=== PATIENT | female | born 1950 | race Caucasian/White ===

== ENCOUNTER 2018-09-26 09:35 | Observation (INO) | payer OTHER ==
[~2018-09-26] VITALS: Ht 160 cm; Wt 85.0 kg
[2018-09-26] MEDS ORDERED: LISI1TAB6 PO (10:36)
[2018-09-26] MEDS ORDERED: METO-319 PO (10:37)
--- NOTE | 2018-09-26 12:05 | ERD ---
ER Documentation Chief Complaint Chief Complaint pressure like pain @ mid chest radiates to th back x 1 week ago HPI 68-year-old female presents the emergency department complaining of chest pain. Patient was evaluated at her doctor's office today when she went for an evaluation of chest discomfort that she is been having for approximately 1 week. Patient states that for the last week she is had a nonspecific, non-provoked pressure-like sensation in the center part of her chest. Occasionally radiates to her back in her arms. It does not make her short of breath. She reports no fevers, chills, sputum production. She reports no hemoptysis. She was evaluated by her doctor where an EKG was performed and was abnormal and she was referred to the emergency department for evaluation. Upon arrival, she appears comfortable and complaining of only mild discomfort. ROS All systems reviewed and are negative except as per history of present illness. Medications Home Meds Reported Medications Metoprolol Succinate* (Toprol XL*) 50 Mg Tab.er.24h, 50 MG PO DAILY, #30 TAB 09/26/18 Lisinopril/Hydrochlorothiazide (Lisinopril-Hctz 20-12.5 mg Tab) 1 Each Tablet, 1 EACH PO DAILY, TAB 09/26/18 Allergies Allergies: Coded Allergies: codeine (Unverified Adverse Reaction, Unknown, 09/26/18) PMhx/Soc History of Surgery: Yes (apendix, gallbladder, hysterectomy) Anesthesia Reaction: No Hx Neurological Disorder: No Hx Respiratory Disorders: No Hx Cardiac Disorders: Yes (htn, cholesterol) Hx Miscellaneous Medical Probl: No Hx Alcohol Use: No Hx Substance Use: No Hx Tobacco Use: No Smoking Status: Never smoker FmHx Family history of heart disease Physical Exam Vitals Vital Signs Date Temp Pulse Resp B/P (MAP) Pulse Ox O2 O2 Flow FiO2 Time Delivery Rate 09/26/18 65 18 141/75 99 Room Air 11:42 (97) 09/26/18 Nasal 2 10:38 Cannula 09/26/18 98.7 69 19 225/102 99 09:39 (143) Physical Exam GENERAL: The patient is well developed and appropriate for usual state of health in no apparent distress HEENT: Pupils equal, round, and reactive to light. EOMI. There is no scleral icterus. NECK: C-spine is soft and supple, there is no meningismus. There is no cervical lymphadenopathy. LUNGS: Clear to auscultation bilaterally. There are no rales, wheezes or rhonchi. HEART: Regular rate and rhythm, no murmurs, clicks, rubs or gallops. ABDOMEN: Soft, non-tender, non-distended. There are bowel sounds in all four quadrants. No rebound or guarding. EXTREMITIES: There is no peripheral cyanosis or edema. No focal swelling or erythema. NEURO: The patient moves all four extremities with 5/5 strength. Cranial nerves II - XII are intact. Normal gait. Alert and oriented SKIN: There is no apparent rash or petechiae. HEME/LYMPHATIC: There is no evidence of excessive bruising or lymphedema. PSYCHIATRIC: The patient does not appear anxious or depressed. Result Diagram: 09/26/18 1110 09/26/18 1110 Results 24 hrs Laboratory Tests Test 09/26/18 11:10 White Blood Count 9.7 10^3/ul Red Blood Count 4.67 10^6/ul Hemoglobin 14.0 g/dl Hematocrit 41.8 % Mean Corpuscular Volume 89.5 fl Mean Corpuscular Hemoglobin 30.0 pg Mean Corpuscular Hemoglobin Concent 33.5 g/dl Red Cell Distribution Width 13.2 % Platelet Count 262 10^3/UL Mean Platelet Volume 10.0 fl Immature Granulocytes % 1.100 % Neutrophils % 71.7 % Lymphocytes % 20.8 % Monocytes % 5.2 % Eosinophils % 0.9 % Basophils % 0.3 % Nucleated Red Blood Cells % 0.0 /100WBC Immature Granulocytes # 0.110 10^3/ul Neutrophils # 7.0 10^3/ul Lymphocytes # 2.0 10^3/ul Monocytes # 0.5 10^3/ul Eosinophils # 0.1 10^3/ul Basophils # 0.0 10^3/ul Nucleated Red Blood Cells # 0.0 10^3/ul Sodium Level 141 mmol/L Potassium Level 4.1 mmol/L Chloride Level 103 mmol/L Carbon Dioxide Level 28 mmol/L Anion Gap 10 Blood Urea Nitrogen 21 mg/dl Creatinine 0.86 mg/dl Est Glomerular Filtrat Rate mL/min > 60 mL/min Glucose Level 117 mg/dl Calcium Level 10.7 mg/dl Troponin I < 0.012 ng/ml Procedures/MDM Patient was taken to a room, seen and evaluated. Comfort measures were initiated. Diagnostic tests were ordered and reviewed. 3 LEAD RHYTHM STRIP: Normal sinus rhythm without ectopy EK lead EKG reviewed by myself: Normal Sinus Rhythm Normal Hendricks and intervals Nonspecific ST and T wave changes with T wave inversions anteriorly, no ST elevation Impression: Abnormal EKG RADIOLOGY: Reviewed with the radiologist CONSULTATION: Hospitalist was notified for admission REEVALUATION: 1200: Diagnostic tests were appreciated discussed with the patient. Arrangements were made for admission for observation MEDICAL DECISION MAKING: Patient presents with chest pain of uncertain etiology. Differential diagnosis considered includes acute myocardial infarction, pulmonary embolism, as well as vascular and pulmonary concerns. I have reviewed the patients clinical risk factors, EKG, lab studies and imaging. At this time, with her abnormal EKG, risk factors she will be admitted for cardiac observation. She appears to have no evidence of aortic dissection or pneumothorax or pulmonary embolism. Departure Diagnosis: Primary Impression: Chest pain Condition: MALAIKA Minaya September 26, 2018 12:04
[2018-09-26] MEDS ORDERED: ACETAMINOPHEN 325 MG TAB PO PRN (15:00)
[2018-09-26] MEDS ORDERED: HYDROCODONE/APAP (5/325) TAB PO PRN (15:00)
[2018-09-26] MEDS ORDERED: morphine 2 MG INJ IV PRN (15:00)
[2018-09-26] MEDS ORDERED: ZOLPIDEM 5 MG TAB PO PRN (15:00)
[2018-09-26] MEDS ORDERED: NITROGLYCERIN (SL) 0.4 MG TAB SL PRN (15:00)
[2018-09-26] MEDS ORDERED: DOCUSATE SODIUM 100 MG CAP PO PRN (15:00)
[2018-09-26] MEDS ORDERED: ONDANSETRON 4 MG INJ IV PRN (15:00)
[2018-09-26] MEDS ORDERED: NACL 0.9% 3 ML SYG IV SCH (15:00)
[2018-09-26] MEDS: NS + KCL 20 MEQ 1,000 ML IV SCH (15:30)
--- NOTE | 2018-09-26 15:51 | HP ---
Date/Time of Note Date/Time of Note DATE: 09/26/18 TIME: 15:47 Assessment/Plan VTE Prophylaxis Pharmacological prophylaxis: NA/contraindicated Pharm contraindication: low risk/ambulating Lines/Catheters IV Catheter Type (from Nrsg): Saline Lock Assessment/Plan Hospital Course 1. Chest pain Patient is a chest pain for 2 weeks now EKG and troponin show no evidence of ischemia Cardiology consultation obtained Follow-up on echo and serial troponins Aspirin and beta-edwar Follow-up on A1c and lipid profile 2. Hypertension Continue home meds Prophylaxis: Ambulation Result Diagram: 09/26/18 1110 09/26/18 1110 Results 24hrs Laboratory Tests Test 09/26/18 11:10 White Blood Count 9.7 Red Blood Count 4.67 Hemoglobin 14.0 Hematocrit 41.8 Mean Corpuscular Volume 89.5 Mean Corpuscular Hemoglobin 30.0 Mean Corpuscular Hemoglobin Concent 33.5 Red Cell Distribution Width 13.2 Platelet Count 262 Mean Platelet Volume 10.0 Immature Granulocytes % 1.100 H Neutrophils % 71.7 Lymphocytes % 20.8 Monocytes % 5.2 Eosinophils % 0.9 Basophils % 0.3 Nucleated Red Blood Cells % 0.0 Immature Granulocytes # 0.110 H Neutrophils # 7.0 Lymphocytes # 2.0 Monocytes # 0.5 Eosinophils # 0.1 Basophils # 0.0 Nucleated Red Blood Cells # 0.0 Sodium Level 141 Potassium Level 4.1 Chloride Level 103 Carbon Dioxide Level 28 Anion Gap 10 Blood Urea Nitrogen 21 H Creatinine 0.86 Est Glomerular Filtrat Rate mL/min > 60 Glucose Level 117 Calcium Level 10.7 H Troponin I < 0.012 HPI/ROS Admit Date/Time Admit Date/Time September 26, 2018 Hx of Present Illness Patient is a 68-year-old female with history of GERD and hypertension, patient presents with 2 weeks of intermittent chest pain that she describes as pressure- like in the midsternum. Patient denies pain with exertion and states that she does get relief when lays down. Patient states that the pain lasts for several hours when it does come, patient denies any history of cardiac disease and states that the pain is different than her acid reflux that she had in the past. Patient denies any shortness of breath, fever or chills, diaphoresis or changes in bowel habits. ROS Constitutional: no complaints, improved Eyes: no complaints ENT: no complaints Respiratory: no complaints Cardiovascular: chest pain Gastrointestinal: no complaints Genitourinary: no complaints Musculoskeletal: no complaints Skin: no complaints Neurologic: no complaints Endocrine: no complaints Lymphatic: no complaints Psychological: no complaints, nl mood/affect Immunologic: no complaints PMH/Family/Social Past Medical History Hypertension, GERD Medications Current Medications Potassium Chloride/Sodium Chloride 1,000 ml @ 100 mls/hr Q10H IV ; Start 09/26/18 at 15:30 IV Flush (NS 3 ml) 3 ml PER PROTOCOL IV ; Start 09/26/18 at 15:00 Ondansetron HCl (Zofran Inj) 4 mg Q6H PRN IV NAUSEA/VOMITING; Start 09/26/18 at 15:00 Acetaminophen (Tylenol Tab) 650 mg Q6H PRN PO .PAIN 1-3 OR TEMP; Start 09/26/18 at 15:00 Acetaminophen/ Hydrocodone Bitart ([place] (5/325)) 1 tab Q6H PRN PO .MOD PAIN 4- 6; Start 09/26/18 at 15:00; Status UNV Morphine Sulfate (morphine) 2 mg Q4H PRN IV .SEVERE PAIN 7-10; Start 09/26/18 at 15:00; Status UNV Docusate Sodium (Colace) 100 mg Q12H PRN PO .CONSTIPATION; Start 09/26/18 at 15:00 Zolpidem Tartrate (Ambien) 5 mg QHS PRN PO .INSOMNIA; Start 09/26/18 at 15:00 Enoxaparin Sodium (Lovenox) 40 mg DAILY SC ; Start 09/27/18 at 09:00 Aspirin (Aspirin) 81 mg DAILY PO ; Start 09/28/18 at 09:00 Nitroglycerin (Nitroglycerin (Sl Tab) 0.4 Mg) 1 tab Q5M PRN SL CHEST PAIN; Start 09/26/18 at 15:00 Metoprolol Succinate (Toprol Xl) 50 mg DAILY PO ; Start 09/27/18 at 09:00 Lisinopril (Zestril) 20 mg DAILY PO ; Start 09/27/18 at 09:00 Hydrochlorothiazide (Hydrochlorothiazide) 12.5 mg DAILY PO ; Start 09/27/18 at 09:00 Coded Allergies: codeine (Unverified Adverse Reaction, Unknown, 09/26/18) Past Surgical History Past Surgical Hx: appendectomy, cholecystectomy, other (Hysterectomy and mole removal on face) Family History Significant Family History: heart disease (Father with heart attack in his 60s) Social History Alcohol Use: rarely Smoking Status: Never smoker Drug Use: none Exam/Review of Systems Vital Signs Vitals Vital Signs Date Temp Pulse Resp B/P (MAP) Pulse Ox O2 O2 Flow FiO2 Time Delivery Rate 09/26/18 65 18 141/75 99 Room Air 11:42 (97) 09/26/18 2 10:38 09/26/18 98.7 09:39 Exam Constitutional: alert, oriented Respiratory: clear to auscultation Cardiovascular: regular rate and rhythm Gastrointestinal: soft; No distended Musculoskeletal: nl extremities to inspection SHAWNA CHARLES September 26, 2018 15:51
--- NOTE | 2018-09-26 16:14 | CONS ---
Assessment/Plan Assessment/Plan Hospital Course (Demo Recall) Chest pain Hypertension urgency Anxiety -Patient with symptoms of chest discomfort which have been more associated when she is upset. She denies any exertional chest pain or shortness of breath -Blood pressure systolic initially was over 220. ECG with nonspecific abnormalities, initial cardiac enzymes are negative -We will continue antihypertensive medication regimen, blood pressure has since improved. Obtain serial cardiac enzymes, echocardiogram Consultation Date/Type/Reason Admit Date/Time September 26, 2018 Type of Consult Cardiology Reason for Consultation Chest pain Date/Time of Note DATE: 09/26/18 TIME: 16:11 Hx of Present Illness This is a 68-year-old female with past medical history of hypertension, anxiety who presents with chest discomfort. Patient states over the past week, she is been watching the news more often and has been more upset. During these episodes, she gets chest discomfort. Chest pain is most sore in the mid chest. No associated shortness of breath. With exertion, she denies any chest discomfort. She does get tired with exertion but no chest pain or shortness of breath. She went to go see her primary care physician and was sent to the emergency room. She does not check her blood pressure regularly and she tells me it has been elevated. She denies any chest pain right now. She denies any shortness of breath, lightheadedness or dizziness. 12 point review of systems was performed with all pertinent positives and negat mariana mentioned above and all else is negative Past Medical History Medical History: hypertension Home Meds Reported Medications Metoprolol Succinate* (Toprol XL*) 50 Mg Tab.er.24h, 50 MG PO DAILY, #30 TAB 09/26/18 Lisinopril/Hydrochlorothiazide (Lisinopril-Hctz 20-12.5 mg Tab) 1 Each Tablet, 1 EACH PO DAILY, TAB 09/26/18 Medications Current Medications Potassium Chloride/Sodium Chloride 1,000 ml @ 100 mls/hr Q10H IV ; Start 09/26/18 at 15:30 IV Flush (NS 3 ml) 3 ml PER PROTOCOL IV ; Start 09/26/18 at 15:00 Ondansetron HCl (Zofran Inj) 4 mg Q6H PRN IV NAUSEA/VOMITING; Start 09/26/18 at 15:00 Acetaminophen (Tylenol Tab) 650 mg Q6H PRN PO .PAIN 1-3 OR TEMP; Start 09/26/18 at 15:00 Acetaminophen/ Hydrocodone Bitart ([place] (5/325)) 1 tab Q6H PRN PO .MOD PAIN 4- 6; Start 09/26/18 at 15:00; Status UNV Morphine Sulfate (morphine) 2 mg Q4H PRN IV .SEVERE PAIN 7-10; Start 09/26/18 at 15:00; Status UNV Docusate Sodium (Colace) 100 mg Q12H PRN PO .CONSTIPATION; Start 09/26/18 at 15:00 Zolpidem Tartrate (Ambien) 5 mg QHS PRN PO .INSOMNIA; Start 09/26/18 at 15:00 Enoxaparin Sodium (Lovenox) 40 mg DAILY SC ; Start 09/27/18 at 09:00 Aspirin (Aspirin) 81 mg DAILY PO ; Start 09/28/18 at 09:00 Nitroglycerin (Nitroglycerin (Sl Tab) 0.4 Mg) 1 tab Q5M PRN SL CHEST PAIN; St art 09/26/18 at 15:00 Metoprolol Succinate (Toprol Xl) 50 mg DAILY PO ; Start 09/27/18 at 09:00 Lisinopril (Zestril) 20 mg DAILY PO ; Start 09/27/18 at 09:00 Hydrochlorothiazide (Hydrochlorothiazide) 12.5 mg DAILY PO ; Start 09/27/18 at 09:00 Allergies: Coded Allergies: codeine (Unverified Adverse Reaction, Unknown, 09/26/18) Past Surgical History Past Surgical Hx: appendectomy, cholecystectomy, other (Hysterectomy and mole removal on face) Social History Alcohol Use: rarely Smoking Status: Never smoker Drug Use: none Exam/Review of Systems Vital Signs Vitals Vital Signs Date Temp Pulse Resp B/P (MAP) Pulse Ox O2 O2 Flow FiO2 Time Delivery Rate 09/26/18 65 18 141/75 99 Room Air 11:42 (97) 09/26/18 2 10:38 09/26/18 98.7 09:39 Exam Constitutional: alert, oriented (No apparent distress, obese) Head: normocephalic Respiratory: clear to auscultation, normal air movement Cardiovascular: regular rate and rhythm (S1-S2 heard) Gastrointestinal: soft, non-tender, bowel sounds Extremities: edema (Trace edema) Labs Result Diagram: 09/26/18 1110 09/26/18 1110 Results 24hrs Laboratory Tests Test 09/26/18 11:10 White Blood Count 9.7 Red Blood Count 4.67 Hemoglobin 14.0 Hematocrit 41.8 Mean Corpuscular Volume 89.5 Mean Corpuscular Hemoglobin 30.0 Mean Corpuscular Hemoglobin Concent 33.5 Red Cell Distribution Width 13.2 Platelet Count 262 Mean Platelet Volume 10.0 Immature Granulocytes % 1.100 H Neutrophils % 71.7 Lymphocytes % 20.8 Monocytes % 5.2 Eosinophils % 0.9 Basophils % 0.3 Nucleated Red Blood Cells % 0.0 Immature Granulocytes # 0.110 H Neutrophils # 7.0 Lymphocytes # 2.0 Monocytes # 0.5 Eosinophils # 0.1 Basophils # 0.0 Nucleated Red Blood Cells # 0.0 Sodium Level 141 Potassium Level 4.1 Chloride Level 103 Carbon Dioxide Level 28 Anion Gap 10 Blood Urea Nitrogen 21 H Creatinine 0.86 Est Glomerular Filtrat Rate mL/min > 60 Glucose Level 117 Calcium Level 10.7 H Troponin I < 0.012 Imaging Imaging ECG demonstrates sinus rhythm, QRS 82 ms, nonspecific ST abnormalities Medications Medications Current Medications Potassium Chloride/Sodium Chloride 1,000 ml @ 100 mls/hr Q10H IV ; Start 09/26/18 at 15:30 IV Flush (NS 3 ml) 3 ml PER PROTOCOL IV ; Start 09/26/18 at 15:00 Ondansetron HCl (Zofran Inj) 4 mg Q6H PRN IV NAUSEA/VOMITING; Start 09/26/18 at 15:00 Acetaminophen (Tylenol Tab) 650 mg Q6H PRN PO .PAIN 1-3 OR TEMP; Start 09/26/18 at 15:00 Acetaminophen/ Hydrocodone Bitart ([place] (5/325)) 1 tab Q6H PRN PO .MOD PAIN 4- 6; Start 09/26/18 at 15:00; Status UNV Morphine Sulfate (morphine) 2 mg Q4H PRN IV .SEVERE PAIN 7-10; Start 09/26/18 at 15:00; Status UNV Docusate Sodium (Colace) 100 mg Q12H PRN PO .CONSTIPATION; Start 09/26/18 at 15:00 Zolpidem Tartrate (Ambien) 5 mg QHS PRN PO .INSOMNIA; Start 09/26/18 at 15:00 Enoxaparin Sodium (Lovenox) 40 mg DAILY SC ; Start 09/27/18 at 09:00 Aspirin (Aspirin) 81 mg DAILY PO ; Start 09/28/18 at 09:00 Nitroglycerin (Nitroglycerin (Sl Tab) 0.4 Mg) 1 tab Q5M PRN SL CHEST PAIN; Start 09/26/18 at 15:00 Metoprolol Succinate (Toprol Xl) 50 mg DAILY PO ; Start 09/27/18 at 09:00 Lisinopril (Zestril) 20 mg DAILY PO ; Start 09/27/18 at 09:00 Hydrochlorothiazide (Hydrochlorothiazide) 12.5 mg DAILY PO ; Start 09/27/18 at 09:00 Gennaro Gee DO September 26, 2018 16:14
[2018-09-26 18:43] VITALS: PULSE 70
[2018-09-26 19:25] VITALS: BP 144/71; PULSE 64; RESP 20
[2018-09-26 20:00] VITALS: PULSE 66; Ht 160 cm; Wt 85.0 kg
[2018-09-27] VITALS (8 sets, daily range): BP systolic 119–155; BP diastolic 64–71; PULSE 64–74; RESP 19–20
[2018-09-27] MEDS: NS + KCL 20 MEQ 1,000 ML IV SCH ×2 (01:30→11:10)
[2018-09-27] MEDS ORDERED: HYDROCHLOROTHIAZIDE 12.5 MG CAP PO SCH (09:00)
[2018-09-27] MEDS ORDERED: ENOXAPARIN 40 MG/0.4 ML SYG SC SCH (09:00)
[2018-09-27] MEDS ORDERED: LISINOPRIL 20 MG TAB PO SCH (09:00)
[2018-09-27] MEDS ORDERED: METOPROLOL (XL) 50 MG TAB PO SCH (09:00)
--- NOTE | 2018-09-27 11:23 | CONS ---
Consult Date/Type/Reason Admit Date/Time September 26, 2018 at 12:06 Initial Consult Date Type of Consultation: cv Date/Time of Note DATE: 09/27/18 TIME: 11:21 Subjective Cardiology follow-up progress note Subjective: Discussed with the staff telemetry was reviewed patient remains sinus rhythm Patient has no more chest pain or pressure Objective: General: no acute distress HEENT: NC/AT. pupils are equal. round. NECK: NO JVD. no stridor. CV: RRR. systolic murmur; no gallop or rubs. PULM: no wheezing or rhonchi. GI: SOFT, NT, ND, no rebound or guarding Extremity: trace B/L LE edema. no clubbing. neuro: awake and alert, OX3. Psych: calm and pleasant rectal: deferred : normal Objective Vitals Vital Signs Date Temp Pulse Resp B/P (MAP) Pulse Ox O2 O2 Flow FiO2 Time Delivery Rate 09/27/18 98.2 67 19 119/66 97 11:07 (83) 09/27/18 Room Air 00:20 09/26/18 2 10:38 Intake and Output 09/26/18 09/26/18 09/27/18 1515:00 23:00 07:00 IntakeIntake Total 1500 ml BalanceBalance 1500 ml Results/Medications Result Diagram: 09/27/18 0509/27/18 0523 Results 24 hrs Laboratory Tests Test 09/26/18 18:26 09/27/18 00:40 09/27/18 05:23 Creatine Kinase 208 H 187 Creatine Kinase Index 0.9 0.8 Creatinine Kinase MB (Mass) 1.89 1.57 Troponin I < 0.012 < 0.012 White Blood Count 7.9 Red Blood Count 4.10 L Hemoglobin 12.3 Hematocrit 36.8 L Mean Corpuscular Volume 89.8 Mean Corpuscular Hemoglobin 30.0 Mean Corpuscular Hemoglobin Concent 33.4 Red Cell Distribution Width 13.3 Platelet Count 246 Mean Platelet Volume 10.2 Immature Granulocytes % 1.100 H Neutrophils % 50.8 Lymphocytes % 38.0 Monocytes % 7.5 Eosinophils % 2.0 Basophils % 0.6 Nucleated Red Blood Cells % 0.0 Immature Granulocytes # 0.090 H Neutrophils # 4.0 Lymphocytes # 3.0 H Monocytes # 0.6 Eosinophils # 0.2 Basophils # 0.1 Nucleated Red Blood Cells # 0.0 Sodium Level 141 Potassium Level 3.8 Chloride Level 106 Carbon Dioxide Level 28 Anion Gap 7 Blood Urea Nitrogen 19 Creatinine 0.83 Est Glomerular Filtrat Rate mL/min > 60 Glucose Level 105 Hemoglobin A1c 5.5 Calcium Level 9.7 Magnesium Level 2.1 Triglycerides Level 100 Cholesterol Level 182 LDL Cholesterol, Calculated 105 HDL Cholesterol 57 Cholesterol/HDL Ratio 3.1 Home Meds Reported Medications Metoprolol Succinate* (Toprol XL*) 50 Mg Tab.er.24h, 50 MG PO DAILY, #30 TAB 09/26/18 Lisinopril/Hydrochlorothiazide (Lisinopril-Hctz 20-12.5 mg Tab) 1 Each Tablet, 1 EACH PO DAILY, TAB 09/26/18 Medications Current Medications Potassium Chloride/Sodium Chloride 1,000 ml @ 100 mls/hr Q10H IV Last administered on 09/26/18at 15:30; Admin Dose 100 MLS/HR; Start 09/26/18 at 15:30 IV Flush (NS 3 ml) 3 ml PER PROTOCOL IV ; Start 09/26/18 at 15:00 Ondansetron HCl (Zofran Inj) 4 mg Q6H PRN IV NAUSEA/VOMITING; Start 09/26/18 at 15:00 Acetaminophen (Tylenol Tab) 650 mg Q6H PRN PO .PAIN 1-3 OR TEMP; Start 09/26/18 at 15:00 Acetaminophen/ Hydrocodone Bitart ([place] (5/325)) 1 tab Q6H PRN PO .MOD PAIN 4- 6; Start 09/26/18 at 15:00 Morphine Sulfate (morphine) 2 mg Q4H PRN IV .SEVERE PAIN 7-10; Start 09/26/18 at 15:00 Docusate Sodium (Colace) 100 mg Q12H PRN PO .CONSTIPATION; Start 09/26/18 at 15:00 Zolpidem Tartrate (Ambien) 5 mg QHS PRN PO .INSOMNIA; Start 09/26/18 at 15:00 Enoxaparin Sodium (Lovenox) 40 mg DAILY SC Last administered on 09/27/18at 08:25; Admin Dose 40 MG; Start 09/27/18 at 09:00 Aspirin (Aspirin) 81 mg DAILY PO ; Start 09/28/18 at 09:00 Nitroglycerin (Nitroglycerin (Sl Tab) 0.4 Mg) 1 tab Q5M PRN SL CHEST PAIN; Start 09/26/18 at 15:00 Metoprolol Succinate (Toprol Xl) 50 mg DAILY PO Last administered on 09/27/18at 08:19; Admin Dose 50 MG; Start 09/27/18 at 09:00 Lisinopril (Zestril) 20 mg DAILY PO Last administered on 09/27/18at 08:18; Admin Dose 20 MG; Start 09/27/18 at 09:00 Hydrochlorothiazide (Hydrochlorothiazide) 12.5 mg DAILY PO Last administered on 09/27/18at 08:18; Admin Dose 12.5 MG; Start 09/27/18 at 09:00 Assessment/Plan Hospital Course (Demo Recall) Chest pain: CO was ruled out Hypertensive urgency currently under control Anxiety Mild dyslipidemia Recommendations: Continue with the current cardiac care including beta-edwar and SYD inhibitor. Patient chest pain has resolved and troponin have been negative Patient reports to me and has had a stress test done about a year ago at Dr. chávez office DC planning today. Patient to follow-up with in 1 week or so for outpatient stress test Thank you ANGELICA CHRISTIANSON MD [facility] ANGELICA CHRISTIANSON MD September 27, 2018 11:23
--- NOTE | 2018-09-27 13:22 | PDOCDIS ---
Discharge Instructions CONDITION [id number] Patient Condition: [id number] Good HOME CARE INSTRUCTIONS: [id number] Diet Instructions: [id number] Reduced Calorie ACTIVITY: [id number] Activity Restrictions: [id number] No Restrictions FOLLOW UP/APPOINTMENTS Follow-up Plan FOLLOW UP WITH YOUR PCP IN 1-2 WEEKS SHAWNA CHARLES September 27, 2018 13:22
--- NOTE | 2018-09-27 13:51 | RADRPT ---
Echocardiogram Report Patient Name: Danis CAMPOVERDEnt ID: [id number] : 1950 (68y 3m)Study Date: 09/27/2018 9:32:00 AM Gender: FAccession #: [id number] Tech: [facility] [place] Location: Ref.Physician: SHAWNA CHARLES Height(Cm): 155 BSA: 1.91Weight(Kg): 84.8 Quality: AdequateAccount #: Procedures: Echocardiographic Report: Transthoracic echocardiogram with complete 2D, M-Mode, and Doppler examination, poor subcostal images. Indications: Chest Pain. Measurements: 2D/M Mode Doppler Measurement Value Normal Range Measurement Value Normal Range LVIDd 2D 4.4 [ 3.8 - 5.2 ] cm AV Peak Gerry 1.7 [ 100.0 - 170.0 ] cm/se c LVIDs 2D 2.5 [ 2.2 - 3.5 ] cm AV Peak PG 11.0 [ 2.0 - 9.0 ] mmHg LVPWd 2D 1.0 [ 0.6 - 0.9 ] cm LVOT Peak Gerry 0.9 [ 70.0 - 110.0 ] cm/sec IVSd 2D 1.0 [ 0.6 - 0.9 ] cm LVOT Peak PG 4.0 [ 2.0 - 6.0 ] mmHg AoR Diam 2D 2.7 [ 2.3 - 3.1 ] cm MV E Peak Gerry 0.7 [ 60.0 - 130.0 ] cm/sec EDV 2D 88.2 [ 46.0 - 106.0 ] ml MV A Peak Gerry 0.9 [ 100.0 - 120.0 ] cm/se c ESV 2D 21.7 [ 14.0 - 42.0 ] ml MV E/A 0.8 [ 0.8 - 1.5 ] ratio EF 2D 75.4 [ 54.0 - 74.0 ] percent MV PHT 65.0 [ 20.0 - 100.0 ] msec LA Dimen 2D 3.7 [ 2.7 - 3.8 ] cm MV Decel Time 222 [ 104 - 258 ] msec MV Decel [place] 3 Lat E` Gerry 0.1 [ 10.0 - 15.0 ] cm/sec Lateral E/E` 8.2 [ 1.0 - 2.0 ] ratio Med E` Gerry 0.1 cm/sec MV E/A 0.8 [ 0.8 - 1.5 ] ratio MVA PHT 3.4 [ 2.0 - 4.0 ] cm2 TR Peak Gerry 1.9 [ 100.0 - 280.0 ] cm/se c TR Peak PG 14.0 mmHg PV Peak Gerry 1.0 [ 40.0 - 80.0 ] cm/sec PV Peak PG 4.0 mmHg RVSP 17.0 [ 10.0 - 36.0 ] mmHg RA Pressure 3.0 mmHg Findings: Left Ventricle: Normal left ventricular systolic function. Normal left ventricular cavity size. Ejection fraction is visually estimated at 65 %. Tissue Doppler/Mitral Doppler indices are consistent with impaired relaxation (Stage I diastolic dysfunction). E/E'= 8. Right Ventricle: Normal right ventricular size. Normal right ventricular systolic function. Left Atrium: The left atrium is normal in size. Right Atrium: The right atrium is normal in size. Atrial Septum: Not well visualized. Mitral Valve: Normal appearance of the mitral valve. No mitral valve regurgitation is seen. Aortic Valve: Normal appearance of the aortic valve. No significant aortic stenosis or insufficiency. Normal trileaflet aortic valve structure. Tricuspid Valve: Normal appearance and function of the tricuspid valve with trace physiologic regurgitation. Estimated peak PA systolic pressure 17 mmHg. Pulmonic Valve: Normal pulmonic valve appearance. No evidence of pulmonic regurgitation. Pericardium: Normal pericardium with no significant pericardial effusion. Aorta: Normal aortic root. There is mild aortic root calcification. IVC: The IVC is not well visualized. Pulmonary Artery: Normal pulmonary artery size. Conclusions: Normal left ventricular systolic function. Normal left ventricular cavity size. Ejection fraction is visually estimated at 65 %. Tissue Doppler/Mitral Doppler indices are consistent with impaired relaxation (Stage I diastolic dysfunction). E/E'= 8. Normal appearance of the mitral valve. No mitral valve regurgitation is seen. Normal appearance of the aortic valve. No significant aortic stenosis or insufficiency. Normal trileaflet aortic valve structure. Normal appearance and function of the tricuspid valve with trace physiologic regurgitation. Estimated peak PA systolic pressure 17 mmHg. g. Electronically Signed By: Avery Hughes 2018-09-27 13:50:15 PDT
--- NOTE | 2018-09-27 16:52 | DS ---
Date/Time of Note Date/Time of Note DATE: 09/27/18 TIME: 16:49 Discharge Summary Admission/Discharge Info Admit Date/Time September 26, 2018 at 12:06 Discharge Date/Time September 27, 2018 at 14:40 Discharge Diagnosis 1. Chest pain secondary to anxiety and muscular pain ACS ruled out with negative EKG and troponins EKG and troponin show no evidence of ischemia, echo with preserved EF Cardiology consultation appreciated Normal A1c and lipid profile 2. Hypertension Continue home meds Patient Condition: Good Hospital Course Patient is a 68-year-old female with history of GERD and hypertension, patient presents with 2 weeks of intermittent chest pain that she describes as pressure- like in the midsternum. Patient was ruled out for ACS, echo showed preserved EF and pain was believed to be muscular secondary to anxiety. Patient was evaluated by cardiology and no further diagnostics were indicated. On the day of discharge patient's vitals, labs and physical exam are stable. Home Meds Reported Medications Metoprolol Succinate* (Toprol XL*) 50 Mg Tab.er.24h, 50 MG PO DAILY, #30 TAB 09/26/18 Lisinopril/Hydrochlorothiazide (Lisinopril-Hctz 20-12.5 mg Tab) 1 Each Tablet, 1 EACH PO DAILY, TAB 09/26/18 Follow-up Plan FOLLOW UP WITH YOUR PCP IN 1-2 WEEKS Primary Care Provider Chalo Pritchett Time spent on discharge: > 30 minutes SHAWNA CHARLES September 27, 2018 16:52
[2018-09-28] MEDS ORDERED: ASPIRIN 81 MG TAB PO SCH (09:00)
== END 2018-09-27 14:40 | disposition home or self-care (01) ==
LOC: E/R 09:35 → 6WM 12:06
PROVIDERS: ADMIT Internal Medicine; ATTEND Internal Medicine
DX: R07.9 Chest pain, unspecified (principal); I10 Essential (primary) hypertension; F41.9 Anxiety disorder, unspecified; K21.9 Gastro-esophageal reflux disease without esophagitis
CPT/HCPCS: 71045; 80048; 80061; 82550; 82553; 83036; 83735; 84484; 85025; 93306; G0378; J1650; J3480; 93005